=== PATIENT | female | born 1970 | race Two or more races ===

== ENCOUNTER 2025-01-15 22:55 | Emergency (ER) | payer OTHER, SELFPAY ==
[2025-01-15 22:56] VITALS: BMI 45.1
[2025-01-15 23:41] VITALS: BP 150/111; BP 156/98; PULSE 86; RESP 18; TEMP 36.9; O2SAT 98
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
== END 2025-01-16 03:10 | disposition home or self-care (01) ==
PROVIDERS: Emergency Provider Emergency Medicine; PCP Nurse Practitioner Family
DX: S13.4XXA Sprain of ligaments of cervical spine, initial encounter (principal); V49.40XA Driver injured in collision with unspecified motor vehicles in traffic accident, initial encounter; I67.82 Cerebral ischemia
CPT/HCPCS: 70450; 72125; 99284